=== PATIENT | female | born 1990 | race Caucasian/White ===

== ENCOUNTER → 2016-05-25 | Outpatient (CLI) | payer OTHER ==
--- NOTE | 2016-05-25 11:10 | REP ---
Clinical: Anatomical evaluation. Comparison: None . Findings: Examination demonstrates a single live intrauterine in cephalic presentation. motion is identified by technologist. Placenta is noted posteriorly and grade zero without evidence for placenta previa or abruption. Amniotic fluid volume is normal. Cervix measures 2.8 cm in length and appears closed. No evidence for nuchal cord. Gestational age by LMP 18 weeks 2 days with LAKIA 10/24/2016 . Gestational age by current measurements 18 weeks 2 day with LAKIA 10/24/2016 . FHR equals 141 beats per minute. BPD 4.1 cm 18 weeks 4 days HC 15.3 cm 18 weeks 2 days AC 12.4 cm 18 weeks 0 days FL 2.7 cm 18 weeks 2 days HL 2.7 cm 18 weeks 3 days HC/AC ratio 1.24 Estimated weight 227 grams ( 41st percentile). Anatomical assessment demonstrates normal structures including cranium, choroid plexus, cavum, cerebellum/posterior fossa, facial features, lungs, four-chamber heart/ventricular outflow tracts, diaphragm, stomach, cord insertion/three-vessel cord, kidneys/bladder, spine, and extremities. Impression: Single live intrauterine in cephalic presentation demonstrating appropriate interval growth. Anatomical assessment is complete and normal. Signed by Noam Almanzar MD 05/25/2016 11:01 A
== END ==
LOC: M RAD 09:42
PROVIDERS: ATTEND Obstetrics & Gynecology
DX: Z34.81 Encounter for supervision of other normal pregnancy, first trimester (principal)

== ENCOUNTER → 2016-07-31 | Outpatient (CLI) | payer OTHER, MEDICAID ==
[2016-07-31 13:32] LABS: MEAN CORPUSCULAR HEMOGLOBIN 31.7 pg (27.0-33.0); MEAN CORPUSCULAR HGB CONC 33.8 g/dl (32.0-36.5); MEAN CORPUSCULAR VOLUME 93.8 fl (80.0-96.0); RED CELL DISTRIBUTION WIDTH 12.7 % (11.5-14.5); WHITE BLOOD COUNT 11.3 K/mm3 (4.0-10.0)
== END ==
LOC: M SMT 09:14
PROVIDERS: ATTEND Obstetrics & Gynecology
DX: Z34.02 Encounter for supervision of normal first pregnancy, second trimester (principal)

== ENCOUNTER → 2016-10-02 | Outpatient (REF) | payer OTHER, MEDICAID | LOC: M LAB REF 16:57 | PROVIDERS: ATTEND Advanced Practice Midwife | DX: Z34.83 Encounter for supervision of other normal pregnancy, third trimester (principal) ==

== ENCOUNTER 2016-10-09 13:59 | Outpatient (CLI) | payer OTHER, MEDICAID ==
[~2016-10-09] VITALS: Ht 157.5 cm; Wt 76.0 kg
[2016-10-09 14:14] VITALS: BP 111/62
== END 2016-10-09 16:22 | disposition home or self-care (01) ==
LOC: M LDO 13:59
PROVIDERS: ATTEND Obstetrics & Gynecology
DX: O36.8130 Decreased fetal movements, third trimester, not applicable or unspecified (principal); Z3A.37 37 weeks gestation of pregnancy; Z79.899 Other long term (current) drug therapy; O98.513 Other viral diseases complicating pregnancy, third trimester; B00.9 Herpesviral infection, unspecified

== ENCOUNTER 2016-10-28 05:55 | Inpatient (IN) | payer MEDICAID, OTHER ==
[2016-10-28] VITALS (51 sets, daily range): BP systolic 95–141; BP diastolic 48–80
[~2016-10-28] VITALS: Ht 157.5 cm; Wt 72.0 kg
[2016-10-28] MEDS ORDERED: PENICILLIN G POTASSIUM IV 5 MU in D5W MINI-BAG PLUS 100 ML IV STA (06:53)
[2016-10-28 07:22] LABS: MEAN CORPUSCULAR HEMOGLOBIN 30.3 pg (27.0-33.0); MEAN CORPUSCULAR HGB CONC 34.3 g/dl (32.0-36.5); MEAN CORPUSCULAR VOLUME 88.3 fl (80.0-96.0); RED CELL DISTRIBUTION WIDTH 14.7 % (11.5-14.5); WHITE BLOOD COUNT 11.2 K/mm3 (4.0-10.0)
[2016-10-28] MEDS ORDERED: VALT500T PO (08:22)
[2016-10-28] MEDS ORDERED: PRENTAB9 PO (08:22)
[2016-10-28] MEDS: PENICILLIN G POTASSIUM IV 2.5 MU in D5W 100 ML IV SCH ×4 (11:40→23:52)
[2016-10-28] MEDS ORDERED: LACTATED RINGER'S 1000 ML IV STA (12:59)
[2016-10-28] MEDS ORDERED: FENTANYL 2MCG/ML ROPIVACAINE 0.2% IN 0.9% NACL 200ML IVBAG As Ordered ONE (15:08)
[2016-10-28] MEDS: ePHEDrine SULFATE 25 MG/5 ML(5MG/ML) SYRINGE IV PRN ×2 (15:59→16:25)
[2016-10-28] MEDS ORDERED: FENTANYL/ROPIVACAINE/NACL BAG 200 ML EPIDURAL SCH (16:00)
[2016-10-28] MEDS ORDERED: LACTATED RINGER'S 1000 ML IV PRN (16:00)
[2016-10-28] MEDS ORDERED: NALOXONE INJ 0.4 MG/1 ML VIAL (J2310) IV PRN (16:00)
[2016-10-28] MEDS ORDERED: ONDANSETRON 4MG/2ML VIAL (J2405) IV PRN (16:00)
[2016-10-28] MEDS ORDERED: diphenhydrAMINE INJ 50MG/ML VIAL (J1200) IV PRN (16:00)
[2016-10-28] MEDS ORDERED: EPIDURAL COMMENT XX SCH (16:00)
[2016-10-28] MEDS ORDERED: REFRIGERATOR IV KEYS XX PRN (16:00)
[2016-10-28] MEDS ORDERED: EPIDURAL/PCA KEYS XX PRN (16:00)
[2016-10-28] MEDS ORDERED: OXYTOCIN DRIP 30 UNITS in APPROPRIATE DILUENT 1 EA IV SCH (17:30)
[2016-10-29] VITALS (8 sets, daily range): BP systolic 113–117; BP diastolic 55–70
[2016-10-29] MEDS ORDERED: ACETAMINOPHEN 500 MG TAB PO PRN (02:00)
[2016-10-29] MEDS ORDERED: OXYTOCIN DRIP 30 UNITS in APPROPRIATE DILUENT 1 EA IV ONE (02:00)
[2016-10-29] MEDS ORDERED: METHYLERGONOVINE MALEATE 0.2 MG TAB PO PRN (02:00)
[2016-10-29] MEDS ORDERED: ONDANSETRON 4MG/2ML VIAL (J2405) IV PRN (02:00)
[2016-10-29] MEDS ORDERED: LIDOCAINE 1% MDV INJ 50 ML VIAL INFIL ONE (02:00)
[2016-10-29] MEDS ORDERED: RHOGAM 300 MCG (1500 IU) INJ (J2790) IM SCH (02:00)
[2016-10-29] MEDS ORDERED: MEASLES,MUMPS,RUBELLA VACCINE INJ (MMR-II) (90707) SC SCH (02:00)
[2016-10-29] MEDS ORDERED: DIBUCAINE 1% OINTMENT 30GM TOP PRN (02:00)
[2016-10-29] MEDS ORDERED: DOCUSATE SODIUM 100 MG CAP PO PRN (02:00)
[2016-10-29] MEDS: IBUPROFEN 800 MG TAB PO PRN (06:29)
[2016-10-29] MEDS ORDERED: ADACEL/BOOSTRIX VACCINE (DIPHTH/PERTUSS/ACELL/TETANUS)0.5ML SYR (90715) IM ONE (09:00)
[2016-10-29] MEDS: PRENATAL VITAMINS CHEWABLE TABLET PO SCH (09:09)
[2016-10-30] MEDS: IBUPROFEN 800 MG TAB PO PRN ×2 (05:06→16:11)
[2016-10-30 05:33] VITALS: BP 108/62
[2016-10-30] MEDS: PRENATAL VITAMINS CHEWABLE TABLET PO SCH (08:52)
--- NOTE | 2016-10-30 09:22 | DN ---
DATE OF DELIVERY: 10/29/2016 PREDELIVERY DIAGNOSIS: 40+ weeks in labor. POSTDELIVERY DIAGNOSIS: Delivered. PROCEDURE: Spontaneous vaginal delivery. SPEECH THERAPY TEACHER: Byron Das MD ANESTHESIA: Epidural. ESTIMATED BLOOD LOSS: 300 mL. FINDINGS: 8 pound 10 ounce male infant, scores of 8 and 9. DELIVERY SUMMARY: After an hour and half of second stage, the patient had spontaneous delivery of an 8 pound 10 ounce male infant, scores of 8 and 9, under epidural anesthesia. There was no nuchal cord. The shoulders delivered with ease. The was handed to the mother. The cord was doubly clamped and cut. The placenta delivered spontaneously, appeared to be intact. The patient received IV pitocin immediately after delivery of the placenta. Partial third degree perineal laceration was repaired under local anesthesia with #2-0 chromic in the usual fashion. Rectal exam at the end of the procedure was normal. Of note, the patient did have a very narrow perineal body. Sponge counts and needle counts were correct.
[2016-10-30 18:10] VITALS: BP 121/58
[2016-10-31 05:42] VITALS: BP 113/76
[2016-10-31] MEDS ORDERED: ACET50TA PO (07:26)
[2016-10-31] MEDS ORDERED: IBUP-1114 PO (07:26)
[2016-10-31] MEDS: PRENATAL VITAMINS CHEWABLE TABLET PO SCH (08:16)
[2016-10-31] MEDS: IBUPROFEN 800 MG TAB PO PRN (10:08)
== END 2016-10-31 10:50 | disposition home or self-care (01) | DRG 542 ==
LOC: M LDO 05:55 → M LDI 06:33 → M OBS 10-29 02:29
PROVIDERS: ADMIT Specialist; ATTEND Specialist
PROC: 10907ZC Drainage of Amniotic Fluid, Therapeutic from Products of Conception, Via Natural or Artificial Opening (ICD-10-PCS; 2016-10-28)
PROC: 10E0XZZ Delivery of Products of Conception, External Approach (ICD-10-PCS; principal; 2016-10-29)
PROC: 0DQR0ZZ Repair Anal Sphincter, Open Approach (ICD-10-PCS; 2016-10-29)
DX: O48.0 Post-term pregnancy (principal); Z37.0 Single live birth; Z3A.40 40 weeks gestation of pregnancy; O70.20 Third degree perineal laceration during delivery, unspecified

== ENCOUNTER → 2016-12-27 | Outpatient (REF) | payer OTHER, MEDICAID ==
[~2016-12-27] MED LIST: ACET50TA PO; IBUP-1114 PO; PRENTAB9 PO; VALT500T PO
== END ==
LOC: M SFHCPLAZ 16:50
PROVIDERS: ATTEND Nurse Practitioner Family
DX: J02.9 Acute pharyngitis, unspecified (principal)

== ENCOUNTER → 2017-03-22 | Outpatient (CLI) | payer OTHER ==
[2017-03-22 12:46] LABS: MEAN CORPUSCULAR HEMOGLOBIN 28.9 pg (27.0-33.0); MEAN CORPUSCULAR HGB CONC 33.1 g/dl (32.0-36.5); MEAN CORPUSCULAR VOLUME 87.4 fl (80.0-96.0); PLATELET COUNT, AUTOMATED 331 10^3/uL (150-450); RED CELL DISTRIBUTION WIDTH 13.4 % (11.5-14.5)
[2017-03-22 13:06] LABS: ALBUMIN 3.5 GM/DL (3.2-5.2); ALKALINE PHOSPHATASE 101 U/L (45-117); ALT/SGPT 19 U/L (12-78); ANION GAP 8 MEQ/L (8-16); AST/SGOT 15 U/L (7-37); BILIRUBIN,TOTAL 0.3 MG/DL (0.2-1.0); BLOOD UREA NITROGEN 7 MG/DL (7-18); CALCIUM LEVEL 8.2 MG/DL (8.5-10.1); CARBON DIOXIDE LEVEL 24 MEQ/L (21-32); CHLORIDE LEVEL 107 MEQ/L (98-107); CHOLESTEROL LEVEL 236 MG/DL (<200); CREATININE FOR GFR 0.89 MG/DL (0.55-1.02); GLOMERULAR FILTRATION RATE > 60.0 (>60); GLUCOSE, FASTING 103 MG/DL (70-105); POTASSIUM SERUM 4.4 MEQ/L (3.5-5.1); SODIUM LEVEL 139 MEQ/L (136-145); THYROXINE (T4) 15.4 UG/DL (4.5-12.0); TOTAL PROTEIN 7.4 GM/DL (6.4-8.2); TRIGLYCERIDES LEVEL 94 MG/DL (<150)
--- NOTE | 2017-03-22 13:06 | REP ---
Chest x-ray: Two views. History: Anemia. Fatigue. . Comparison study: No comparison . Findings: The lungs are well inflated and free of infiltrate. The pleural angles are sharp. The heart size is normal. Pulmonary vasculature is not increased. No significant bony abnormality is seen. Impression: Negative chest x-ray. Signed by Jose Alfredo Bella MD 03/22/2017 12:58 P
--- NOTE | 2017-03-24 20:57 | ECGEPIP ---
Stationary ECG Study [facility] Test Date: 2017-03-22 Pat Name: JITENDRA RAHMAN Department: Room: - Gender: F Physician/Allergy/Immunology: MARIO : 1990 Requested By: Troy Sood Order Number: [id number] Reading MD: Sebastian Arce Measurements Intervals [place] Rate: 60 P: 16 PA: 156 QRS: 65 QRSD: 68 T: 36 QT: 391 QTc: 394 Interpretive Statements SINUS RHYTHM WITH SINUS ARRHYTHMIA No prior ECG available for comparison at the time of interpretation. Electronically Signed On 03-24-2017 20:57:09 EST by Sebastian Arce
== END ==
LOC: M EKG 11:57
PROVIDERS: ATTEND Family Medicine
DX: D64.9 Anemia, unspecified (principal)

== ENCOUNTER → 2017-03-22 | Outpatient (CLI) | payer OTHER ==
[2017-03-22 12:48] LABS: CONTROL LINE HCG INT CTR LINE PRESENT
== END ==
LOC: M LAB 11:49
PROVIDERS: ATTEND Advanced Practice Midwife
DX: N92.6 Irregular menstruation, unspecified (principal)

== ENCOUNTER 2017-06-07 12:33 | Emergency (ER) | payer OTHER, MEDICAID ==
[2017-06-07 13:46] LABS: HEMOGLOBIN 14.2 g/dl (12.0-16.0); MEAN CORPUSCULAR HEMOGLOBIN 29.3 pg (27.0-33.0); MEAN CORPUSCULAR VOLUME 88.8 fl (80.0-96.0); PLATELET COUNT, AUTOMATED 321 10^3/uL (150-450); RED BLOOD COUNT 4.84 10^6/uL (4.00-5.40); RED CELL DISTRIBUTION WIDTH 12.5 % (11.5-14.5); WHITE BLOOD COUNT 7.1 10^3/uL (4.0-10.0)
[2017-06-07 14:05] LABS: CONTROL LINE HCG INT CTR LINE PRESENT; HCG, SERUM QUALITATIVE NEGATIVE (NEGATIVE)
[2017-06-07 14:21] LABS: ALBUMIN 4.3 GM/DL (3.2-5.2); ALBUMIN/GLOBULIN RATIO 1.16 (1.00-1.93); ALKALINE PHOSPHATASE 92 U/L (45-117); ALT/SGPT 26 U/L (12-78); ANION GAP 6 MEQ/L (8-16); AST/SGOT 14 U/L (7-37); BILIRUBIN,DIRECT 0.1 MG/DL (0.0-0.2); BILIRUBIN,TOTAL 0.4 MG/DL (0.2-1.0); BLOOD UREA NITROGEN 11 MG/DL (7-18); CARBON DIOXIDE LEVEL 27 MEQ/L (21-32); CHLORIDE LEVEL 108 MEQ/L (98-107); CREATININE FOR GFR 0.81 MG/DL (0.55-1.30); GLOMERULAR FILTRATION RATE > 60.0 (>60); GLUCOSE, FASTING 110 MG/DL (70-100); POTASSIUM SERUM 4.3 MEQ/L (3.5-5.1); SALICYLATE LEVEL < 1.7 MG/DL (5.0-30.0); SODIUM LEVEL 141 MEQ/L (136-145)
[2017-06-07 14:22] LABS: AMPHETAMINES LEVEL URINE NEGATIVE (NEGATIVE); BARBITURATES URINE NEGATIVE (NEGATIVE); BENZODIAZEPINES URINE POSITIVE (NEGATIVE); CANNABINOIDS URINE NEGATIVE (NEGATIVE); COCAINE METABOLITE URINE NEGATIVE (NEGATIVE); METHADONE URINE NEGATIVE (NEGATIVE); OPIATES URINE NEGATIVE (NEGATIVE); PHENCYCLIDINE URINE NEGATIVE (NEGATIVE)
[2017-06-07 14:23] LABS: ACETAMINOPHEN LEVEL < 2.0 UG/ML (10.0-30.0); ETHYL ALCOHOL (ETHANOL) < 0.003 % (0.000-0.010)
== END 2017-06-07 15:39 | disposition home or self-care (01) ==
LOC: M ED 12:33
DX: F32.9 Major depressive disorder, single episode, unspecified (principal); E78.9 Disorder of lipoprotein metabolism, unspecified; A60.09 Herpesviral infection of other urogenital tract; G43.909 Migraine, unspecified, not intractable, without status migrainosus; Z91.5 Personal history of self-harm
CPT/HCPCS: 80320

== ENCOUNTER → 2017-08-20 | Outpatient (CLI) | payer OTHER ==
[2017-08-20 09:39] LABS: CHOLESTEROL LEVEL 157 MG/DL (<200); CHOLESTEROL RISK RATIO 3.829 (<5); GLUCOSE, FASTING 103 MG/DL (70-100); HDL CHOLESTEROL 41 MG/DL (>40); LDL CHOLESTEROL 106.2 MG/DL (<100); NON-HDL-C 116 MG/DL; TRIGLYCERIDES LEVEL 49 MG/DL (<150)
== END ==
LOC: M LAB 08:56
DX: Z51.81 Encounter for therapeutic drug level monitoring (principal); Z79.899 Other long term (current) drug therapy
CPT/HCPCS: 82947

== ENCOUNTER → 2018-06-27 | Outpatient (CLI) | payer OTHER ==
[~2018-06-27] MED LIST changes: -ACET50TA PO; +E-Z-GAS II EFFERVESCENT PACKET (SODIUM BICARB./CITRIC ACID/SIMETHICONE) As Ordered ONE; +E-Z-HD 98% w/w 340GM SUSP BTL As Ordered ONE; +E-Z-PAQUE 96% w/w SUSP 176GM BTL As Ordered ONE; +MAPA500T2 PO; +RITA10TA PO; +XANA0.5T PO
--- NOTE | 2018-06-27 11:12 | REP ---
Right upper quadrant sonography: History: However quadrant pain. Comparison study: No comparison study. Findings: Scanning through the right upper quadrant of the abdomen demonstrates a normal sized, thin-walled gallbladder without evidence of stone or polyp. Common bile duct is normal measuring 0.5 cm in greatest diameter. No focal liver lesion is seen. Liver size is normal. No pancreatic abnormality is observed. No right renal abnormality is seen. There is no evidence of ascites. The right kidney measures 10.7 x 4.9 x 3.9 cm. Impression: Negative right upper quadrant sonography. Electronically Signed by Jose Alfredo Bella MD 06/27/2018 11:03 A
--- NOTE | 2018-06-27 13:50 | REP ---
Examination Requested: Upper G.I. Series With KUB Reason For Patient Visit: Right Upper Quadrant Pain / Epigastric Pain Reason For Exam: Epigastric Pain An upper GI air contrast The procedure was performed under the personal supervision of Dr. Bella. The images were reviewed with Dr. Bella. The laundry laborer film shows no organomegaly or pathological masses. The intestinal gas pattern appears normal. Liquid barium and gas producing crystals were given tissue in the erect position as well as liquid barium in the prone position in order to perform a double contrast upper GI examination. The oral and pharyngeal stages of deglutition were unremarkable. Esophageal transport is efficient and there is no esophagitis, stricture, or mucosal ring noted. There is a small hiatal hernia as well as small amount of reflux noted. The stomach williamson are normally outlined. The rugal folds are smooth and regular. There is no gastritis, neoplasm, ulcer disease noted. The duodenal williamson are normally outlined. The mucosal folds are smooth and regular. There is no duodenitis, pancreatitis, peptic ulcer disease, or neoplasm noted. The visualized portion of the proximal small bowel appears normal in course and caliber. Impression: 1. Small hiatal hernia. 2. Gastroesophageal reflux Reviewed by KAMLESH Braden 06/27/2018 12:45 P Electronically Signed by Jose Alfredo Bella MD 06/27/2018 01:41 P
== END ==
LOC: M RAD 10:20
PROVIDERS: ATTEND Family Medicine
DX: R10.13 Epigastric pain (principal); K44.9 Diaphragmatic hernia without obstruction or gangrene; K21.9 Gastro-esophageal reflux disease without esophagitis

== ENCOUNTER → 2018-07-31 | Outpatient (CLI) | payer OTHER, MEDICAID ==
[~2018-07-31] MED LIST changes: -E-Z-GAS II EFFERVESCENT PACKET (SODIUM BICARB./CITRIC ACID/SIMETHICONE) As Ordered ONE; -E-Z-HD 98% w/w 340GM SUSP BTL As Ordered ONE; -E-Z-PAQUE 96% w/w SUSP 176GM BTL As Ordered ONE
--- NOTE | 2018-07-31 10:26 | REP ---
Chest two views HISTORY: Anemia Comparison: 03/22/2017 The lungs are clear. The heart is normal in size. The pulmonary vasculature is normal in appearance. The bony structure is intact. IMPRESSION: No acute disease. Electronically Signed by Byron Gonzales MD 07/31/2018 10:17 A
== END ==
LOC: M ADAMS 09:20
PROVIDERS: ATTEND Family Medicine
DX: J98.01 Acute bronchospasm (principal)

== ENCOUNTER 2018-09-24 05:56 | Day surgery (SDC) | payer OTHER ==
[~2018-09-24] VITALS: Ht 157.5 cm; Wt 61.7 kg
[~2018-09-24 05:56] MED LIST changes: +CELE40TA PO; +CITA40TA4 PO; +OMEP-218 PO; +RANI150T14 PO; +RISP1TAB3 PO; +SUCR1TAB56 PO; +TRAZ-163 PO
[2018-09-24] MEDS ORDERED: LIDOCAINE 1% MDV 20ML VIAL SQ PRN (06:00)
[2018-09-24 06:39] LABS: HEMATOCRIT 41.8 % (36.0-47.0); HEMOGLOBIN 13.7 g/dl (12.0-15.5); MEAN CORPUSCULAR HEMOGLOBIN 31.4 pg (27.0-33.0); MEAN CORPUSCULAR HGB CONC 32.8 g/dl (32.0-36.5); MEAN CORPUSCULAR VOLUME 95.9 fl (80.0-96.0); PLATELET COUNT, AUTOMATED 266 10^3/uL (150-450); RED BLOOD COUNT 4.36 10^6/uL (4.00-5.40)
[2018-09-24] MEDS ORDERED: BUPIVACAINE HCL 0.25% 10 ML VIAL As Ordered ONE (06:57)
[2018-09-24] MEDS ORDERED: SILVER NITRATE APPLICATOR As Ordered ONE (06:57)
[2018-09-24] MEDS ORDERED: LR 1,000 ML IV ONE (07:00)
[2018-09-24] MEDS ORDERED: dexameTHASONE 4 MG/ML 1ML VIAL (J1100) As Ordered ONE (07:14)
[2018-09-24] MEDS ORDERED: PROPOFOL 200 MG/20 ML VIAL As Ordered ONE (07:15)
[2018-09-24] MEDS ORDERED: LIDOCAINE 2% INJ 100 MG/5 ML SDV (FOR ANES.) As Ordered ONE (07:15)
[2018-09-24] MEDS ORDERED: ONDANSETRON 4MG/2ML VIAL (J2405) As Ordered ONE ×2 (07:15→09:34)
[2018-09-24] MEDS ORDERED: ROCURONIUM BROMIDE 50 MG/5 ML VIAL As Ordered ONE (07:15)
[2018-09-24 07:17] LABS: HCG, SERUM QUALITATIVE NEGATIVE (NEGATIVE)
[2018-09-24] MEDS ORDERED: MIDAZOLAM INJ 2 MG/2 ML VIAL (J2250) As Ordered ONE (07:18)
[2018-09-24] MEDS ORDERED: fentaNYL 100 MCG/2 ML INJECTION (J3010) As Ordered ONE (07:18)
[2018-09-24] MEDS ORDERED: NEOSTIGMINE 10 MG/10 ML VIAL (J2710) As Ordered ONE (08:56)
[2018-09-24] MEDS ORDERED: GLYCOPYRROLATE INJ 0.2 MG/ML 2 ML VIAL As Ordered ONE (08:56)
[2018-09-24] MEDS ORDERED: KETOROLAC 60 MG/2 ML VIAL (J1885) As Ordered ONE (08:57)
[2018-09-24] MEDS ORDERED: METOCLOPRAMIDE INJ 10MG/2ML VIAL (J2765) As Ordered ONE (09:36)
[2018-09-24] MEDS ORDERED: PROMETHAZINE INJ 25 MG/ML VIAL (J2550) IV PRN (09:45)
[2018-09-24] MEDS ORDERED: METOCLOPRAMIDE INJ 10MG/2ML VIAL (J2765) IV PRN (09:45)
[2018-09-24] MEDS ORDERED: oxyCODONE 5MG TAB PO PRN (09:45)
[2018-09-24] MEDS ORDERED: LR 1,000 ML IV SCH ×2 (09:45)
[2018-09-24] MEDS: fentaNYL 100 MCG/2 ML INJECTION (J3010) IV PRN ×2 (10:15→10:20)
[2018-09-24] MEDS ORDERED: OXYC1TAB23 PO (10:22)
[2018-09-24] MEDS ORDERED: IBUP80TA PO (10:24)
[2018-09-24] MEDS ORDERED: COLA100C5 PO (10:25)
[2018-09-24 11:15] VITALS: BP 110/55
--- NOTE | 2018-09-24 18:07 | RO ---
DATE OF PROCEDURE: 09/24/2018 PREOPERATIVE DIAGNOSIS: Satisfied parity. POSTOPERATIVE DIAGNOSIS: Satisfied parity. PROCEDURE PERFORMED: 1. Laparoscopic bilateral salpingectomy. 2. Nexplanon removal from the left arm. SURGEON: Dr. Jose Quinones GARDE MANGER: None. ANESTHESIA TYPE: General endotracheal. SPECIMENS SENT TO PATHOLOGY: Bilateral fallopian tubes. ESTIMATED BLOOD LOSS: 5 mL. FLUIDS REPLACED: 800 mL lactated Ringer's. DRAINS: Zambrano catheter 200 mL urine output. COMPLICATIONS: None. PREOPERATIVE ANTIBIOTICS: None indicated. INDICATION: The patient is a 28-year-old with satisfied parity requesting permanent tubal sterilization. She has been fully counseled on all available control method options to include long-acting reversible contraception. She is adamant about proceeding with permanent tubal sterilization via laparoscopic bilateral salpingectomy. SURGICAL FINDINGS: Normal uterus and bilateral adnexa and ovaries. Physiologic adhesions of the left descending colon/sigmoid to the sidewall. The Nexplanon was removed intact. DESCRIPTION OF PROCEDURE: The patient was counseled and consented on the risks, benefits, indications and alternatives of the procedure. Informed consent was obtained. She was taken to the operating room with an IV running, placed on the operating table in the dorsal supine position. General anesthesia was administered and the airway secured without any difficulty. She was placed in the low lithotomy position. She was prepared and draped in a normal sterile fashion. A time-out was performed per protocol. Attention was first turned to the pelvis. A Zambrano catheter was placed under sterile conditions. A sterile speculum was placed into the vagina with good visualization of the cervix. The anterior lip of the cervix was grasped with a single-tooth tenaculum and downward traction was applied. The cervix was sequentially dilated with Amauri dilators. ZUMI uterine manipulator was placed in typical fashion, and the single-tooth tenaculum was removed. The sterile speculum was removed. A glove switch was performed. Attention was turned to the abdomen. 5 mL of 0.25% Marcaine were injected into the umbilicus. An 11 blade was used to create a 5 mm umbilical incision. Through this incision, a Veress needle was placed into the intraperitoneal cavity. Intraperitoneal placement was confirmed with ease of flow of normal saline, positive drop test and negative return on aspiration. The opening pressure was 2 mmHg. The abdomen was insufflated with 2 liters of gas. The Veress needle was removed. The size 5 mm [place] laparoscopic trocar was placed under direct visualization into the intraperitoneal cavity without any difficulty. No incidental bleeding or injury was noted. The patient was placed in steep Trendelenburg. Two additional laparoscopic port sites were placed in the left lower abdomen through 5 mm incisions under direct laparoscopic visualization. Attention was turned to the right fallopian tube. The right fallopian tube was followed out to the fimbriated end and elevated. The underlying mesosalpinx/broad ligament was sequentially clamped, coagulated and transected with the LigaSure device until the level of the cornu was reached. At the level of the cornu, the fallopian tube was cross-clamped, coagulated and transected, thus amputating the right fallopian tube. The right fallopian tube was brought through the laparoscopic cannula and sent to pathology for permanent section. Attention was then turned to the left fallopian tube. The left fallopian tube was followed out to the fimbriated end and grasped and elevated. The underlying mesosalpinx and broad ligament were sequentially clamped, coagulated and transected using the 5 mm LigaSure device until the level of the cornu was reached. At the level of the cornu, the fallopian tube was cross-clamped, coagulated and transected, thus amputating the left fallopian. The left fallopian tube was brought through the laparoscopic cannula without any difficulty and sent to pathology for permanent section. Both surgical sites on the left and right side were completely hemostatic. Survey of the abdomen revealed normal anatomy and minimal peritoneal adhesions. The appendix was retrocecal, not visualized. The liver edge and gallbladder were normal in appearance. Gas was released from the abdomen. Excellent hemostasis was noted during this process. The cannulas were then removed. The skin incisions were closed with #4-0 Monocryl in a subcuticular fashion, reinforced with Dermabond. Attention was turned to the left arm. The left arm was prepared with chlorhexidine. An 11 blade was used to zeeshan the skin right over the Nexplanon implant, and the Nexplanon implant was easily expulsed out and grasped with a hemostat and removed completely intact. Small skin incision was closed with Dermabond and reinforced with Steri-Strips and a bandage dressing. The left arm was hemostatic. Attention was turned back to the pelvis. The Zambrano catheter was removed. The ZUMI uterine manipulator was removed. All instruments were removed from the vagina. Sponge, needle, and instrument counts were correct per protocol. The patient was transferred to the post-anesthesia care unit (PACU) in good and stable condition. SKYLAR
== END 2018-09-24 11:18 | disposition home or self-care (01) ==
LOC: M SDC 05:56
PROVIDERS: ATTEND Obstetrics & Gynecology
DX: Z30.2 Encounter for sterilization (principal); F32.9 Major depressive disorder, single episode, unspecified; K44.9 Diaphragmatic hernia without obstruction or gangrene; F41.9 Anxiety disorder, unspecified; F43.10 Post-traumatic stress disorder, unspecified; F60.3 Borderline personality disorder; Z79.899 Other long term (current) drug therapy; Z72.0 Tobacco use
CPT/HCPCS: 11982; 36415; 58661; 84703; 85027; 86850; 86900; 86901; 88302; J1100; J1885; J2250; J2710; J2765; J3010

== ENCOUNTER → 2023-08-23 | Outpatient (REF) | payer OTHER, MEDICAID ==
[~2023-08-23] MED LIST changes: -CITA40TA4 PO; +CITA40TA7 PO; +COLA100C5 PO; +IBUP80TA PO; +OMEP-173 PO; -OMEP-218 PO; +OXYC1TAB23 PO; +RISP-105 PO; -RISP1TAB3 PO; -TRAZ-163 PO; +TRAZ-257 PO; +VENL75CA47
[2023-08-23 13:44] LABS: ALBUMIN 3.8 G/DL (3.2-5.2); ALKALINE PHOSPHATASE 60 U/L (46-116); ALT/SGPT 17 U/L (7.0-40); AST/SGOT 16 U/L (<34); BILIRUBIN,TOTAL 0.4 MG/DL (0.3-1.2); BLOOD UREA NITROGEN 8 MG/DL (9-23); CALCIUM LEVEL 8.7 MG/DL (8.5-10.1); CARBON DIOXIDE LEVEL 27 MMOL/L (20-31); CHLORIDE LEVEL 107 MMOL/L (98-107); CHOLESTEROL LEVEL 161 MG/DL (<200); CHOLESTEROL RISK RATIO 3.79 (<5); CREATININE FOR GFR 0.76 MG/DL (0.55-1.30); GLOMERULAR FILTRATION RATE > 60.0 (>60); GLUCOSE, FASTING 89 MG/DL (60-100); HDL CHOLESTEROL 42.4 MG/DL (>40); LDL CHOLESTEROL 111.2 MG/DL (<100); NON-HDL-C 118.6 MG/DL; POTASSIUM SERUM 4.4 MMOL/L (3.5-5.1); SODIUM LEVEL 140 MMOL/L (136-145); TOTAL PROTEIN 6.9 G/DL (5.7-8.2); TRIGLYCERIDES LEVEL 37 MG/DL (<150)
[2023-08-23 13:46] LABS: TOTAL 25(OH) VITAMIN D 25.6 NG/ML (20.0-100.0)
== END ==
LOC: M LAB REF 12:04
PROVIDERS: ATTEND Physician Assistant
DX: Z11.9 Encounter for screening for infectious and parasitic diseases, unspecified (principal); E55.9 Vitamin D deficiency, unspecified; Z13.220 Encounter for screening for lipoid disorders; F90.0 Attention-deficit hyperactivity disorder, predominantly inattentive type

== ENCOUNTER → 2023-11-28 | Outpatient (CLI) | payer MEDICAID, SELFPAY | LOC: M RAD 12:53 | PROVIDERS: ATTEND Physician Assistant | DX: J34.2 Deviated nasal septum (principal) ==